=== PATIENT | female | born 1980 | race African-American/Black ===

== ENCOUNTER 2017-03-20 10:43 | Emergency (ER) | payer OTHER ==
[~2017-03-20] VITALS: Ht 160 cm; Wt 120.7 kg
[2017-03-20 11:00] VITALS: BP 138/83
[2017-03-20] MEDS ORDERED: ACYCLOVIR 800800 MG PO (11:00)
== END 2017-03-20 11:35 | disposition home or self-care (01) ==
LOC: ER 10:43
DX: B00.1 Herpesviral vesicular dermatitis (principal); F10.99 Alcohol use, unspecified with unspecified alcohol-induced disorder

== ENCOUNTER 2018-09-18 18:37 | Emergency (ER) | payer OTHER ==
[~2018-09-18] VITALS: Ht 160 cm; Wt 120.2 kg
[~2018-09-18 18:37] MED LIST: ACYCLOVIR 800800 MG PO
[2018-09-18] MEDS ORDERED: IBUPROFEN 600600 M1 PO (19:08)
[2018-09-18] MEDS ORDERED: NORFLEX100 MG PO (20:20)
[2018-09-18] MEDS ORDERED: NAPROSYN500 MG PO (20:20)
[2018-09-18 20:35] VITALS: BP 129/80
== END 2018-09-18 20:37 | disposition home or self-care (01) ==
LOC: ER 18:37
DX: S16.1XXA Strain of muscle, fascia and tendon at neck level, initial encounter (principal); S00.83XA Contusion of other part of head, initial encounter; Y04.2XXA Assault by strike against or bumped into by another person, initial encounter; Y92.89 Other specified places as the place of occurrence of the external cause; Y93.89 Activity, other specified; Y99.8 Other external cause status

== ENCOUNTER 2019-02-23 21:06 | Emergency (ER) | payer OTHER ==
[~2019-02-23] VITALS: Ht 160 cm; Wt 120.2 kg
[~2019-02-23 21:06] MED LIST changes: +IBUPROFEN 600600 M1 PO; +NAPROSYN500 MG PO; +NORFLEX100 MG PO
[2019-02-23] MEDS ORDERED: TYLENOL PM EX-1 EACH PO (21:13)
[2019-02-23] MEDS ORDERED: IBUPROFEN 200200 M1 PO (21:14)
[2019-02-23 21:43] LABS: URINE BILIRUBIN NEGATIVE (Negative); URINE BLOOD TRACE (Negative); URINE CLARITY CLEAR; URINE COLOR YELLOW; URINE GLUCOSE-RANDOM* NEGATIVE (Negative); URINE KETONES NEGATIVE (Negative); URINE LEUKOCYTES-REFLEX 1+ (Negative); URINE NITRITE-REFLEX NEGATIVE (Negative); URINE PROTEIN (DIPSTICK) NEGATIVE (Negative); URINE SPECIFIC GRAVITY <= 1.005 (1.005-1.035); URINE UROBILINOGEN 0.2 E.U./dl (0.2-1.0)
[2019-02-23 21:51] LABS: CASTS None Seen /LPF (None Seen); CRYSTALS None Seen /LPF (None Seen); SQUAMOUS None Seen /LPF (0-3)
[2019-02-23 21:52] LABS: URINE RBC 0-2 Rare /HPF (0-2); URINE WBC-REFLEX 0-5 Rare /HPF (0-5)
[2019-02-23 23:17] VITALS: BP 146/88
== END 2019-02-24 00:28 | disposition home or self-care (01) ==
LOC: ER 21:06
PROVIDERS: Emergency Medicine
DX: N72 Inflammatory disease of cervix uteri (principal)

== ENCOUNTER 2019-07-09 14:37 | Emergency (ER) | payer OTHER ==
[~2019-07-09] VITALS: Ht 160 cm; Wt 117.9 kg
[~2019-07-09 14:37] MED LIST changes: +IBUPROFEN 200200 M1 PO; +TYLENOL PM EX-1 EACH PO
[2019-07-09 17:02] VITALS: BP 177/90
== END 2019-07-09 17:02 | disposition home or self-care (01) ==
LOC: ER 14:37
DX: N89.8 Other specified noninflammatory disorders of vagina (principal)